=== PATIENT | female | born 1995 | race Caucasian/White ===

== ENCOUNTER → 2018-01-10 16:54 | Outpatient (REF) | payer BC, SELFPAY ==
[2018-01-10 18:37] LABS: Basophils # 0.1 K/mm3 (0-0.2); Basophils % 0.7 % (0.1-2.0); Eosinophils # 0.1 K/mm3 (0.0-0.4); Eosinophils % 0.7 % (0.1-12.0); Hematocrit 45.7 % (37.0-47.0); Hemoglobin 14.3 g/dL (12.2-16.2); Lymphocytes # 1.8 K/mm3 (0.7-4.5); Lymphocytes % 22.3 K/mm3 (10-50); Mean Corpuscular HGB Conc 31.3 g/dL (31.8-35.4); Mean Corpuscular Hemoglobin 27.2 pg (27.0-31.2); Mean Corpuscular Volume 86.9 fl (81-99); Mean Platelet Volume 8.6 fl (7.4-10.4); Monocytes # 0.3 K/mm3 (0.1-1.0); Monocytes % 3.9 % (1.7-9.3); Neutrophils # 5.8 K/mm3 (1.8-7.8); Neutrophils % 72.4 % (37.0-80.0); Platelet Count 245 K/mm3 (142-424); Red Blood Count 5.26 M/mm3 (4.20-5.40); Red Cell Distribution Width 12.8 % (11.5-17.5)
[2018-01-10 19:31] LABS: Alanine Aminotransferase 36 U/L (12-78); Albumin Level 4.3 gm/dL (3.4-5.0); Albumin/Globulin Ratio 1.5 (1.1-1.8); Alkaline Phosphatase 104 U/L (46-116); Anion Gap 14.5 mEq/L (5-15); Aspartate Amino Transferase 25 U/L (15-37); Bilirubin,Total 0.4 mg/dL (0.2-1.0); Blood Urea Nitrogen 11 mg/dL (7-18); Calcium 9.5 mg/dL (8.5-10.1); Carbon Dioxide 28 mmol/L (21.0-32.0); Chloride 104 mmol/L (98-107); Chol/HDL Ratio 2.4 (1-3.5); Cholesterol 132 mg/dL (140-200); Estimated Glomerular Filt Rate 124 ml/min (>60); GFR (African American) 150 ML/MIN (>60); Globulin 2.9 gm/dl (1.3-3.2); Glucose 93 mg/dL (74-106); HDL Cholesterol 55 mg/dL (29-89); LDL Cholesterol 67 mg/dL (0-130); Potassium 4.5 mmoL/L (3.5-5.1); Sodium 142 mmol/L (136-145); T4 (Thyroxine) 8.4 ug/dl (4.7-13.3); Thyroid Stimulating Hormone 1.93 uIU/ml (0.358-3.740); Total Protein,Serum 7.2 gm/dL (6.4-8.2); Triglycerides 52 mg/dL (30-200); VLDL Cholesterol 10 mg/dL (0-40)
[2018-01-12 15:47] LABS: Vitamin D 25 Hydroxy 32.1 ng/mL (30.0-100.0)
== END ==
LOC: LAB 16:54
PROVIDERS: Visit Provider Physician Assistant
DX: Z00.00 Encounter for general adult medical examination without abnormal findings (principal); Z86.2 Personal history of diseases of the blood and blood-forming organs and certain disorders involving the immune mechanism
CPT/HCPCS: 80053; 80061; 82652; 84436; 84443; 85025